=== PATIENT | female | born 1960 | race Caucasian/White ===

== ENCOUNTER 2021-05-29 14:45 | Observation (INO) ==
[2021-05-29 17:37] LABS: Basophils # 0.1 10*3/uL (0.0-0.2); Basophils % 0.7 % (0.0-0.8); Eosinophils % 0.4 % (0.00-10.9); Hematocrit 34.9 VOL% (35.7-47.0); Hemoglobin 10.5 GM/DL (12.0-16.0); Immature Granulocytes % 0.4 %; Immature Granulocytes Absolute 0.04 #; Lymphocytes # 1.9 10*3/uL (1.4-4.0); Lymphocytes % 21.4 % (21.3-54.2); Mean Corpuscular HGB Conc 30.1 GM/DL (32-36); Mean Corpuscular Volume 94.3 FL (87-102); Mean Platelet Volume 11.7 FL (9.6-12.0); Monocytes % 6.4 % (1.7-12.7); Neutrophils % 70.7 % (38.7-73.9); Platelet Count 336 T/CUMM (130-400); Red Cell Distribution Width 15.6 % (9.3-17.3)
[2021-05-29 18:03] LABS: Alanine Aminotransferase 12 U/L (13-56); Albumin 3.5 G/DL (3.4-5.0); Alkaline Phosphatase 136 U/L (45-117); Aspartate Amino Transferase 8 U/L (0-37); Blood Urea Nitrogen 11 MG/DL (7-18); Calcium 8.6 MG/DL (8.5-10.1); Carbon Dioxide 28 MMOL/L (21-32); Estimated Glom Filtration Rate 99 ML/MIN; Glucose 99 MG/DL (74-106); Osmolality,Calculated 284.8 MOS/KG (273-304); Sodium 144 MMOL/L (136-145); Total Protein 7.1 G/DL (6.4-8.2)
[2021-05-29 18:06] LABS: Bilirubin,Urine Negative (Negative); Blood, Urine Small mg/dL (Negative); Glucose,Urine (UA) Negative (Negative); Ketones,Urine Negative (Negative); Mucus,Urine Occasional /LPF (Occasional); Nitrite,Urine Negative (Negative); Protein,Urine 30 MG/DL; RBC,Urine 3 /HPF (0-4); Squamous Epithelial Cell,Urine Occasional /HPF (0-10); Urine Appearance CLEAR (Clear); Urine Color Yellow (Yellow); Urine Specific Gravity 1.024 (1.001-1.035); Urine Urobilinogen < 2.0 EU/DL (<2.0)
[2021-05-29] MEDS ORDERED: POTASSIUM CHLORIDE 20 MEQ TABLET PO STA (18:19)
[2021-05-29 18:32] LABS: Salicylate < 2.8 MG/DL (2.8-20)
[2021-05-29 18:32] LABS: Barbiturates Screen,Urine Negative (Negative); Benzodiazepines Screen,Urine Negative (Negative); Cannabinoid Screen,Urine Negative (Negative); Opiate Screen,Urine Negative (Negative); Phencyclidine Screen,Urine Negative (Negative)
[2021-05-29 18:35] LABS: Acetaminophen < 2.0 UG/ML (10-30)
[2021-05-29 18:59] LABS: ABG Base Excess 2.6 MMOL/L (-2.5-2.5); ABG HCO3 26.7 MMOL/L (20-26); ABG Oxygen Saturation 95.6 % (95-100); ABG PCO2 41.6 MM HG (35-48); ABG PH 7.425 (7.35-7.45); ABG PO2 77.3 MM HG (80-95); ABG TCO2 24.1 MMOL/L (23-27)
[2021-05-30 07:47] VITALS: BP 123/77
== END 2021-05-30 10:01 | disposition home or self-care (01) ==
LOC: EDBD → EDUNIT# → N.EDINP 14:45 → N.ED 14:45 → N.EDINP 22:16 → N.3E 05-30 02:49
PROVIDERS: ADMIT Internal Medicine; ATTEND Internal Medicine